=== PATIENT | male | born 1940 | race Caucasian/White ===

== ENCOUNTER 2019-07-04 21:23 | Inpatient (IN) | payer MEDICARE, OTHER ==
[~2019-07-04] VITALS: Ht 170.2 cm; Wt 78.0 kg
[2019-07-04] MEDS ORDERED: QUET25TA PO (21:37)
[2019-07-04] MEDS ORDERED: DEPAKOTE (21:37)
--- NOTE | 2019-07-04 22:10 | NUR ---
PT BIB [facility] via [facility]. Ambulating with steady gait. pt here on 5150 hold from [facility] for DTS and Others. patient able to follow commands and cooperative with staff. Breathing even and unlabored. No SOB noted. Pressure Sealer And Tester aware. No 1:1 sitter available. Closely monitoring patient
--- NOTE | 2019-07-04 22:15 | NUR ---
Dr. Briceno at bedside for MSE
[2019-07-05] MEDS ORDERED: ZOLPIDEM 5 MG TABLET PO PRN (00:30)
[2019-07-05] MEDS ORDERED: ACETAMINOPHEN 325 MG TABLET PO PRN (00:30)
[2019-07-05] MEDS ORDERED: MAG HYDROX/AL HYDROX/SIMETH 30 ML LIQUID UDC PO PRN (00:30)
[2019-07-05] MEDS ORDERED: MAGNESIUM HYDROXIDE 30 ML LIQUID UDC PO PRN (00:30)
[2019-07-05 00:44] VITALS: BP 127/81
--- NOTE | 2019-07-05 01:21 | NUR ---
GPS: Admitted to unit earlier a 78 yr.old male under the care of /JULIANA Cortes. Pt.is on a 72 hour hold for DTO/GD. Pt.threatened his at home,was having auditory hallucinations and was accusing of cheating on him,per hold. Pt.is alert to self/name. Confused,disoriented. Unable to say why he's in the hosp. Calm,cooperative without any increased agitation noted. Safety emphasized. Unable to sign admission papers. Skin assessment done. Pt's advisement given as well as pt's rights handbook. Will continue to monitor behavior.
[2019-07-05 07:30] VITALS: BP 106/71
[2019-07-05] MEDS: QUETIAPINE FUMARATE 25 MG TABLET PO SCH ×2 (09:50→20:04)
--- NOTE | 2019-07-05 13:32 | NUR ---
Material Handler Loader Note/Family Contact: commissary worker contacted patients daughterGhazala ([phone]) and gathered collateral. commissary worker discussed patients treatment plan and discharge plan.
--- NOTE | 2019-07-05 14:12 | NUR ---
Social Work Note/Initial Discharge Plan: Pt currently resides at [address] [place] [address]; ([phone]) with his ex-. Upon discharge, pt will return home or per pts daughter Ghazala ([phone]) would like pt to go to a SNF. SW will work with the pt and the MD regarding appropriate discharge planning. SW will form a safe and proper discharge.
[2019-07-05 15:08] VITALS: BP 104/52
[2019-07-05 19:53] VITALS: BP 149/71
[2019-07-05] MEDS: LORAZEPAM 0.5 MG TABLET PO PRN (22:00)
--- NOTE | 2019-07-05 22:02 | NUR ---
GPS: Pt.is anxious,restless and going in and out of other pt's rooms. Confused,disoriented. Needs constant re-direction and reality re-orientation from staff. Ativan 0.5mg PO given. Will monitor effectiveness. Fall precautions observed. No aggressive behavior noted.
[2019-07-06 07:30] VITALS: BP_SYST 120; BP_SYST 130; BP_DIAS 57; BP_DIAS 73
[2019-07-06] MEDS: QUETIAPINE FUMARATE 25 MG TABLET PO SCH ×2 (09:20→20:00)
[2019-07-06 16:47] VITALS: BP 108/64
[2019-07-06 20:43] VITALS: BP 139/80
[2019-07-06] MEDS: LORAZEPAM 0.5 MG TABLET PO PRN (23:02)
--- NOTE | 2019-07-07 02:00 | NUR ---
Pt came out of his room, and immediately went to this [employer] portable computer, and took the scanner off, and attempted to throw it at this science writer, he then began posturing with his fists, and became unmanageable. he also continued to be intrusive into peers rooms, and became aggressive when redirected. was placed in the kleber chair for safety, and placed at nurses station, for closer monitoring.
[2019-07-07] MEDS: LORAZEPAM 0.5 MG TABLET PO PRN ×3 (04:31→22:23)
--- NOTE | 2019-07-07 05:55 | NUR ---
Patient slept only 1.15 hours. Constantly up wandering in other rooms, minimal ability to take redirection. Time spent in Alexandra chair for safety of patients and others. Patient awake in bed at this time. Bed alarm on, monitoring closely for violent and unpredictable behavior.
[2019-07-07 07:30] VITALS: BP 135/63
[2019-07-07] MEDS: QUETIAPINE FUMARATE 25 MG TABLET PO SCH (09:23)
--- NOTE | 2019-07-07 12:50 | NUR ---
Gps/Stave Saw Operator- and daughter in to visit/ Patient's black jogging pant, taken home by family r/t unable to wear , has string. under wear missing per . Noted rashes on his abdominal area, , family brought triacinolone 0.5% top. cream,ws applied by , will informed MD to order top. cream as pt. home meds.
[2019-07-07 16:00] VITALS: BP 99/63
--- NOTE | 2019-07-07 16:25 | NUR ---
Patient wondering around the unit walking into all the rooms. Pt needs frequent redirection. Pt cannot remember where his room is despite the sign with his name on the door. Pt was noted to attempt to help his roommate out of the bed. pt was also noted walking into female room and trying to help the patient to the wheelchair. Pt forgets limitation. Pt does not remember that he is in a hospital. Dr. Vences was contacted and order for 1;1 sitter was obtained.
[2019-07-07 20:09] VITALS: BP 132/63
[2019-07-07] MEDS ORDERED: QUETIAPINE FUMARATE 25 MG TABLET PO SCH (21:00)
--- NOTE | 2019-07-08 06:38 | NUR ---
1:1 sitter maintained during the night. Patient up throughout the night with sitter. Confused and disoriented. Israeli speaking. Patient not combative during this shift. Will endorse to oncoming shift accordingly.
[2019-07-08 07:30] VITALS: BP 130/74
[2019-07-08] MEDS: QUETIAPINE FUMARATE 25 MG TABLET PO SCH (08:41)
--- NOTE | 2019-07-08 11:17 | NUR ---
Social Work Note/PC Hearing Notification: bottling room worker contacted patients daughter Ghazala, ([phone]) and notified patients probable cause of hearing today.
--- NOTE | 2019-07-08 11:29 | NUR ---
Social Work Note/Individual Therapy Note: dry chain worker met with patient and provided brief supportive counseling. Patient presented quite confused and disoriented.
--- NOTE | 2019-07-08 14:43 | NUR ---
Social Work Note/Family Contact: police worker spoke to patients daughter Ghazala, ([phone]) and updated her details in regard to the hearing that he was found gravely disabled and will remain on the 5250. Patients daughter Ghazala, shared that Ghazala and her mother are unsure if they want patient back home or to a SNF.
[2019-07-08 16:00] VITALS: BP 118/70
[2019-07-08] MEDS: QUETIAPINE FUMARATE 100 MG TABLET PO SCH (20:58)
[2019-07-08] MEDS: LORAZEPAM 0.5 MG TABLET PO PRN (20:59)
[2019-07-08] MEDS ORDERED: QUETIAPINE FUMARATE 25 MG TABLET PO SCH (21:00)
[2019-07-08 21:58] VITALS: BP 120/78
--- NOTE | 2019-07-09 00:39 | NUR ---
Patient becoming increasingly agitated. Continues to pace the floor, yelling, going into other patients rooms. Difficult to redirect. Bothering patient in his room, telling staff to call "Police" because "that man stole from me." Continues to try to open up unit door and " Go home ".Dr. Vences notified and order receive for IM injection. Continuing to monitor and keep patient safe.
[2019-07-09] MEDS ORDERED: LORAZEPAM 2 MG/1 ML VIAL IM ONE (00:45)
[2019-07-09] MEDS ORDERED: OLANZAPINE 10 MG VIAL IM ONE (00:45)
--- NOTE | 2019-07-09 06:08 | NUR ---
Patient slept 2 hours. Up most of the night wandering around and not complying with staff requests. After many hours of this behavior, patient went to bed, in bed at this time asleep. Continuing to round frequently and provide a safe environment. Monitoring patient closely.
--- NOTE | 2019-07-09 12:45 | NUR ---
Gps/Pai Gow Dealer Found patient sleeping in different bed, awakened patient, redirected back to his room Ate lunch, fed self.Continue to monitor pt. for safety
[2019-07-09] MEDS: QUETIAPINE FUMARATE 25 MG TABLET PO SCH (13:42)
[2019-07-09 16:00] VITALS: BP 111/56
--- NOTE | 2019-07-09 16:15 | NUR ---
Gps/Labor Service Representative- To CT scan of head w/o contrast via wheel chair.
[2019-07-09] MEDS: LORAZEPAM 0.5 MG TABLET PO PRN ×2 (17:24→21:22)
--- NOTE | 2019-07-09 17:42 | NUR ---
Gps/Zigzag Elastic Attacher- Patient kept wandering around going from room to room, to room. Others patient gets upset, and starting to fight together, difficulty redirecting patients. Continue to monitor patient closely for safety.
--- NOTE | 2019-07-09 17:59 | NUR ---
PT NOTED TO BE HIGHLY AGITATED, CONFUSED AND AGGRESSIVE. PT WANDERS INTO OTHER PT'S ROOMS FREQUENTLY AND REQUIRES FREQUENT AND EXTENSIVE REDIRECTION. PT WENT INTO ANOTHER PT'S ROOM AND SHUT THE DOOR. WHEN THE PT WENT TO HIS ROOM, ETELVINA BECAME PHYSICALLY AGGRESSIVE AND ATTEMPTED TO PUNCH THE OTHER PT HE WAS ATTEMPTING TO GO INTO HIS ROOM. SECURITY CALLED BUT THEY STATED THEIR WAS NO ONE THAT COULD COME BECAUSE THEIR WAS 2 GUARDS ONLY AND 1 ON HIS BREAK. NURSES WHERE ABLE TO REDIRECT PT BACK TO DAY ROOM AT THIS TIME.
--- NOTE | 2019-07-09 18:30 | NUR ---
Gps/Dog Warden- Patient kept up in a kleber-chair , to restrict patient from wandering to other patient's room .Continue to monitor safety, pt. needing constant redirection , poor insight .
[2019-07-09] MEDS: QUETIAPINE FUMARATE 100 MG TABLET PO SCH (20:07)
[2019-07-09] MEDS ORDERED: CLONAZEPAM 1 MG TABLET PO SCH (21:00)
[2019-07-09 21:02] VITALS: BP 114/75
--- NOTE | 2019-07-10 06:20 | NUR ---
Patient slept a total of 3.30 hours. Patient compliant with medications but wandered around the unit despite frequent redirection before going to bed to sleep. Attended all needs. Ensured safety and comfort. Patient has been compliant with medications. Will endorse accordingly.
[2019-07-10 07:30] VITALS: BP 106/59
[2019-07-10] MEDS: QUETIAPINE FUMARATE 25 MG TABLET PO SCH ×2 (09:10→16:40)
[2019-07-10] MEDS: LORAZEPAM 0.5 MG TABLET PO PRN ×2 (12:49→22:08)
--- NOTE | 2019-07-10 15:44 | NUR ---
Gps/Occupational Therapist Assistants- Kept patient up by the Nurses station, remains to get figity, wandering to other room , constant redirections provided .Safety reviewed and emphasized.
[2019-07-10 16:08] VITALS: BP 145/60
[2019-07-10] MEDS: QUETIAPINE FUMARATE 100 MG TABLET PO SCH (20:52)
[2019-07-10] MEDS: CLONAZEPAM 1 MG TABLET PO SCH (20:52)
[2019-07-10] MEDS ORDERED: OLANZAPINE 10 MG VIAL IM ONE (22:45)
[2019-07-10] MEDS ORDERED: LORAZEPAM 2 MG/1 ML VIAL IM ONE (22:45)
--- NOTE | 2019-07-10 23:23 | NUR ---
PT GOING TO OTHER PATIENTS ROOM. PT EVEN CLOSED ONE ROOM. TOLD HIM ITS NOT HIS ROOM. PT NEEDS REORIENTATION. PT TENDS TO BE COMBATIVE. GIVEN ATIVAN PRN FOR PT BEING ANXIOUS , AGITATED AND RESTLESS. AFTER AN HOUR PT STILL FEEL AGITATED. CALLED OUTBOUND SALES SPECIALIST FOR ANY PRN MEDICATIONS TO BE GIVEN.
--- NOTE | 2019-07-10 23:38 | NUR ---
AT 2245H DR. MOISE ORDERED ATIVAN 1MG IM ONCE AND ZYPREXA 10MG IM ONCE FOR PT. AT 2310 GAVE SHOT TO THE PT WITH THE HELP OF THE SECURITY GUARDS AND THE STAFFS FROM [facility]. PT COMPLIANT. PT IN NO ACUTE RESPIRATORY DISTRESS. SAFETY AND COMFORT PROVIDED. WILL CONTINUE TO MONITOR.
--- NOTE | 2019-07-11 06:27 | NUR ---
PT SLEPT 5.15 HOURS.PT IN NO ACUTE DISTRESS. PRESCRIBED MEDICATIONS GIVEN .THE IM SHOTS GIVEN AND PT TOLERATED IT WELL. PT HAD NO RESPIRATORY DISTRESS. PT TOLERATED IT WELL. SAFETY AND COMFORT PROVIDED. WILL ENDORSE TO INCOMING NURSE FOR CONTINUITY OF CARE.
[2019-07-11 07:30] VITALS: BP 123/56
[2019-07-11] MEDS: QUETIAPINE FUMARATE 25 MG TABLET PO SCH ×2 (09:41→17:52)
[2019-07-11 15:49] VITALS: BP 130/62
[2019-07-11 20:00] VITALS: BP 127/77
[2019-07-11] MEDS: CLONAZEPAM 1 MG TABLET PO SCH (20:05)
[2019-07-11] MEDS ORDERED: QUETIAPINE FUMARATE 100 MG TABLET PO SCH (21:00)
--- NOTE | 2019-07-11 23:32 | NUR ---
GPS: Pt.sleeping intermittently. Needs frequent re-direction and re-assurance from staff. Confused,disoriented and forgetful. Frequent reality re-orientation provided. Will continue to monitor behavior.
[2019-07-12 07:30] VITALS: BP 115/76
[2019-07-12] MEDS: QUETIAPINE FUMARATE 25 MG TABLET PO SCH ×2 (08:53→16:19)
--- NOTE | 2019-07-12 10:23 | NUR ---
Social Work Note/Family Contact: tree worker spoke to patients daughter Rody, ([phone]) expressed that they want patient at a SNF locally. tree worker will work with Dr. Vences to find patient SNF placement locally.
--- NOTE | 2019-07-12 10:48 | NUR ---
Social Work Note/Discharge Plan: pharmaceutical worker contacted admin coordinator Casey ([phone]) and faxed progress notes and psychiatric H & P for coordination of care. Admin coordinator will review clinicals and will contact social media manager.
[2019-07-12 11:49] LABS: BASOPHILS % (AUTO) 0.6 % (0.0-2.0); EOSINOPHILS # (AUTO) 0.2 K/uL (0.0-0.7); EOSINOPHILS % (AUTO) 4.1 % (0.0-7.0); HEMATOCRIT 40.8 % (36.7-47.1); HEMOGLOBIN 13.9 g/dL (12.5-16.3); LYMPHOCYTES % (AUTO) 43.2 % (20.5-51.5); MEAN CORPUSCULAR HEMOGLOBIN 34.3 uug (23.8-33.4); MEAN CORPUSCULAR HGB CONC 34 g/dL (32.5-36.3); MEAN CORPUSCULAR VOLUME 100.8 fL (73.0-96.2); MONOCYTES # (AUTO) 0.5 K/uL (2.0-10.0); MONOCYTES % (AUTO) 10.5 % (0.0-11.0); NEUTROPHILS # (AUTO) 1.9 K/uL (1.8-8.9); NEUTROPHILS % (AUTO) 41.6 % (38.5-71.5); PLATELET COUNT (AUTO) 239 K/uL (152-348); RED BLOOD CELL COUNT(AUTO) 4.05 MIL/uL (4.06-5.63); WHITE BLOOD COUNT (AUTO) 4.7 K/uL (3.6-10.2)
[2019-07-12 11:59] LABS: CREATININE 0.9 mg/dL (0.6-1.3); POTASSIUM 3.8 mmol/L (3.5-5.1)
[2019-07-12 12:16] LABS: THYROID STIMULATING HORMONE 1.282 mIU/mL (0.358-3.740)
[2019-07-12 12:30] LABS: BILIRUBIN,TOTAL 0.9 mg/dL (0.2-1.0); MAGNESIUM 2.1 mg/dL (1.8-2.4); PHOSPHOROUS 3.5 mg/dL (2.5-4.9); TOTAL PROTEIN, SERUM 8.4 g/dL (6.4-8.2)
[2019-07-12 15:23] VITALS: BP 119/73
--- NOTE | 2019-07-12 15:48 | NUR ---
Social Work Note/Discharge Plan: lawn care worker contacted admin coordinator Casey ([phone]) and faxed progress notes and psychiatric H & P for coordination of care. Admin coordinator will accept patient upon discharge.
--- NOTE | 2019-07-12 15:48 | NUR ---
Social Work Note/Family Contact: relief worker contacted patients daughter Rody ([phone]) who advised that they would want patient to be sent to a SNF. Patients daughter reported that she needs to speak to her mother. relief worker provided more information in regards to the placement patient was accepted to [facility]. Per Rody, expressed that she would want a Bahraini speaker at the facility. relief worker advised that there are Bahraini speakers at the facility. relief worker shared number of Will who is a nurse at [facility] ([phone]). Per Rody, she will contact the facility and social service agency director will follow up with her decision.
[2019-07-12] MEDS: LORAZEPAM 0.5 MG TABLET PO PRN (16:16)
--- NOTE | 2019-07-12 17:21 | NUR ---
GPS: received AOx1, confused rosalia in and out of other patient room, able to redirect , comply with medication, denies SI and HI
[2019-07-12 20:00] VITALS: BP 118/74
[2019-07-12] MEDS: QUETIAPINE FUMARATE 200 MG TABLET PO SCH (20:47)
[2019-07-12] MEDS: CLONAZEPAM 1 MG TABLET PO SCH (20:47)
[2019-07-12] MEDS ORDERED: QUETIAPINE FUMARATE 100 MG TABLET PO SCH (21:00)
--- NOTE | 2019-07-13 06:04 | NUR ---
Patient slept 7:30 hours. Patient wanders into other patients rooms, frequent redirection was needed. No aggressive behaviors noted. Patient compliant with medication and care. Will endorse to next shift.
[2019-07-13 07:30] VITALS: BP 111/73
--- NOTE | 2019-07-13 07:50 | NUR ---
RECEIVED REPORT FROM BEE RAISER NURSE, PT ASLEEP, RESP EVEN UNLABORED, NO DISTRESS.
[2019-07-13 08:37] LABS: BASOPHILS % (AUTO) 0.6 % (0.0-2.0); EOSINOPHILS # (AUTO) 0.2 K/uL (0.0-0.7); EOSINOPHILS % (AUTO) 4.4 % (0.0-7.0); HEMATOCRIT 35.5 % (36.7-47.1); HEMOGLOBIN 12.3 g/dL (12.5-16.3); LYMPHOCYTES # (AUTO) 1.8 K/uL (20.0-40.0); LYMPHOCYTES % (AUTO) 42.8 % (20.5-51.5); MEAN CORPUSCULAR HEMOGLOBIN 34.6 uug (23.8-33.4); MEAN CORPUSCULAR HGB CONC 35 g/dL (32.5-36.3); MEAN CORPUSCULAR VOLUME 99.7 fL (73.0-96.2); MONOCYTES # (AUTO) 0.5 K/uL (2.0-10.0); MONOCYTES % (AUTO) 11.1 % (0.0-11.0); NEUTROPHILS # (AUTO) 1.8 K/uL (1.8-8.9); NEUTROPHILS % (AUTO) 41.1 % (38.5-71.5); PLATELET COUNT (AUTO) 208 K/uL (152-348); RED BLOOD CELL COUNT(AUTO) 3.56 MIL/uL (4.06-5.63); WHITE BLOOD COUNT (AUTO) 4.3 K/uL (3.6-10.2)
--- NOTE | 2019-07-13 08:46 | NUR ---
Social Work Note/Family Contact: sheet metal duct worker supervisor contacted patients daughter Rody ([phone]) who expressed that she will check out the facility today with her mother and will call social worker clinical back in regards to it. sheet metal duct worker supervisor will follow up.
[2019-07-13 08:55] LABS: THYROID STIMULATING HORMONE 1.068 mIU/mL (0.358-3.740)
[2019-07-13] MEDS: QUETIAPINE FUMARATE 25 MG TABLET PO SCH ×2 (09:07→16:23)
[2019-07-13 09:12] LABS: BILIRUBIN,TOTAL 0.8 mg/dL (0.2-1.0); CREATININE 0.9 mg/dL (0.6-1.3); MAGNESIUM 2.1 mg/dL (1.8-2.4); PHOSPHOROUS 4.2 mg/dL (2.5-4.9); POTASSIUM 4.1 mmol/L (3.5-5.1)
[2019-07-13 16:00] VITALS: BP 138/60
[2019-07-13] MEDS: LORAZEPAM 0.5 MG TABLET PO PRN ×2 (16:24→21:25)
--- NOTE | 2019-07-13 16:26 | NUR ---
Gave 0.5mg ativan, pt anxious going in and out of rooms and trying to get in the nurses station. Will continue to monitor.
--- NOTE | 2019-07-13 17:46 | NUR ---
PT IS CALM AND QUIET, ALSO TOOK 5PM MED WITH NO RESISTANCE.
[2019-07-13] MEDS: QUETIAPINE FUMARATE 200 MG TABLET PO SCH (20:36)
[2019-07-13] MEDS: CLONAZEPAM 1 MG TABLET PO SCH (20:36)
--- NOTE | 2019-07-13 21:16 | NUR ---
Received patient in his room, no behavioral issue at this time, no sign or symptom of resp. distress, no indication of pain or discomfort. med compliant, will remain in a psych setting for further evaluation and treatment.
--- NOTE | 2019-07-13 21:28 | NUR ---
Patient was anxious going in and out of rooms and trying to get in the nurses station. Gave 0.5mg ativan. Will continue to monitor.
[2019-07-13 23:25] VITALS: BP 116/76
[2019-07-14 07:30] VITALS: BP 153/72
[2019-07-14] MEDS: QUETIAPINE FUMARATE 25 MG TABLET PO SCH (08:04)
--- NOTE | 2019-07-14 08:04 | NUR ---
Social Work Note/Discharge: Patient will be discharged to a locked nursing home facility to [facility] [address] [place] [address]; ([phone]) via Ambulance transportation. Please arrange Ambulance transportation for patient to be picked up at 12:00am. Network Infrastructure Architect spoke with Casey, Agriculture Manager at [facility]; ([phone]), who stated patient will be accepted at facility today. Patient is alert and oriented x1, and is not able to plan for self-care at this time, but is willing to accept care provided for her at the facility. Patient denies any suicidal or homicidal ideations. Patient is aware and agreeable with discharge plans. Patients daughter, Ghazala ([phone]) is aware and agreeable with discharge plans. Patient will continue to follow-up with her Psychiatrist Dr. Vences and Investigative Analyst Dr. Tapia at [facility] [address] [place] [address]; ([phone]). Patient will follow-up at the center. Patient presents with euthymic mood and congruent affect.
--- NOTE | 2019-07-14 08:05 | NUR ---
Social Work Note/Firearm Note: Veterinary Nurse completed and submitted a [employer] firearms report for 5250 grave disability certification. A copy of report has been placed in patient chart.
--- NOTE | 2019-07-14 08:17 | NUR ---
Social Work Note/Family Contact: equipment worker contacted patients daughter Rody ([phone]) reported that patient will be discharged today. Per Rody, she is aware and agreed with the discharge plan.
--- NOTE | 2019-07-14 10:06 | NUR ---
GPS: RECEIEVED PATIENT AOX1, COMPLIANT WITH MEDICATION, DENEIS SI AND HI, PATIENT HAS TENDENCY TO WANDERS AROUND THE UNIT, ABLE TO REDIRECTABLE, PATIENT HAS DISCHARGE ORDER GOING TO [facility], GAVE REPORT TO EMRE COLBERT, NO ROOM ASSIGNMENT YET, DR. MOISE AWARE OF THE DISCAHRGE, PATIENT DAUGTHER AWARE OF THE DISCHARGE PLANNING, WILL CONTINUE MONITOR
--- NOTE | 2019-07-14 13:03 | NUR ---
patient transferred to [facility] on a gurney via ambulance unit number [id number].patient vs with in normal limit, family aware, dr. hartman notified
== END 2019-07-14 13:00 | DRG 885 ==
LOC: ER 21:27 → GPS 23:44
PROVIDERS: ADMIT Psychiatry & Neurology Psychiatry; ATTEND Internal Medicine
DX: F29 Unspecified psychosis not due to a substance or known physiological condition (principal); F02.81 Dementia in other diseases classified elsewhere, unspecified severity, with behavioral disturbance; D68.59 Other primary thrombophilia; E44.1 Mild protein-calorie malnutrition; G30.9 Alzheimer's disease, unspecified; Z74.09 Other reduced mobility; G31.9 Degenerative disease of nervous system, unspecified; Z68.26 Body mass index [BMI] 26.0-26.9, adult; R73.03 Prediabetes; Z79.899 Other long term (current) drug therapy; I25.10 Atherosclerotic heart disease of native coronary artery without angina pectoris; E78.5 Hyperlipidemia, unspecified
CPT/HCPCS: 36415; 70450; 83735; 84100; 84443; 85025; 93005; A4663; J2060; J2358